=== PATIENT | male | born 1980 | race Caucasian/White ===

== ENCOUNTER → 2017-11-30 | Outpatient (CLI) | payer SELFPAY ==
[2017-11-30 09:36] LABS: EOS # 0.1 (0.04-0.40); EOS % 2.3 % (0.0-4.0); HEMATOCRIT 47.4 % (42.0-52.0); HEMOGLOBIN 15.9 g/dL (13.5-18.0); LYMPH# 2.5 (1.50-4.00); MEAN CELL VOLUME 85 fl (78-100); MEAN CORPUSCULAR HEMOGLOBIN 29 pg (27-31); MEAN CORPUSCULAR HGB CONC 34 g/dL (33-37); MEAN PLATELET VOLUME 10.1 fl (7.4-10.4); MONO # 0.6 (0.20-0.80); NEU # 2.4 (1.40-6.50); PLATELET COUNT 258 K/mm3 (130-400); RED BLOOD COUNT 5.57 M/mm3 (4.20-5.60); WHITE BLOOD COUNT 5.6 K/mm3 (4.8-10.8)
[2017-11-30 09:51] LABS: ALBUMIN 4.4 g/dL (3.5-5.0); BUN/CREATININE RATIO 23.5 (6.0-26.0); CALCIUM 9.7 mg/dL (8.4-10.2); POTASSIUM 4.2 mmol/L (3.6-5.0); TOTAL BILIRUBIN 0.6 mg/dL (0.2-1.3); TOTAL PROTEIN 8.2 g/dL (6.3-8.2)
[2017-11-30 09:56] LABS: URINE APPEARANCE CLEAR; URINE COLOR YELLOW
[2017-11-30 09:57] LABS: URINE BILIRUBIN NEGATIVE (NEGATIVE); URINE BLOOD TRACE (NEGATIVE); URINE GLUCOSE NEGATIVE (NEGATIVE); URINE KETONE NEGATIVE (NEGATIVE); URINE LEUKOCYTE ESTERASE NEGATIVE (NEGATIVE); URINE NITRATE NEGATIVE (NEGATIVE); URINE PROTEIN(semi-quant) 1+ mg/dL (NEGATIVE); URINE UROBILINOGEN NORMAL (NORMAL); URINE WBC 0-1 /hpf (0-3)
== END ==
LOC: LAB 09:18
PROVIDERS: Physician Assistant
DX: R10.13 Epigastric pain (principal); R19.5 Other fecal abnormalities

== ENCOUNTER → 2019-01-26 | Outpatient (CLI) | payer SELFPAY ==
[2019-01-26 07:28] LABS: ALBUMIN 4.3 g/dL (3.5-5.0); CALCIUM 9.8 mg/dL (8.3-10.5); POTASSIUM 4.2 mmol/L (3.5-5.1); TOTAL BILIRUBIN 0.9 mg/dL (0.2-1.2); TOTAL PROTEIN 6.9 g/dL (6.4-8.3)
== END ==
LOC: LAB 06:49
PROVIDERS: Family Medicine
DX: Z13.6 Encounter for screening for cardiovascular disorders (principal); R35.8 Other polyuria; R81 Glycosuria; Z83.3 Family history of diabetes mellitus; R20.9 Unspecified disturbances of skin sensation

== ENCOUNTER 2024-11-16 15:58 | Emergency (ER) | payer SELFPAY ==
[~2024-11-16] VITALS: Ht 175.3 cm; Wt 86.4 kg
[2024-11-16 17:15] LABS: BASO # 0.04 K/mm3 (0.02-0.10); EOS # 0.08 K/mm3 (0.04-0.40); EOS % 0.7 % (0.0-4.0); HEMOGLOBIN 14.9 g/dL (13.5-18.0); LYMPH# 2.07 K/mm3 (1.50-4.00); MEAN CELL VOLUME 85 fl (78-100); MEAN CORPUSCULAR HEMOGLOBIN 29 pg (27-31); MEAN CORPUSCULAR HGB CONC 34 g/dL (33-37); MEAN PLATELET VOLUME 10.3 fl (7.4-10.4); MONO # 0.62 K/mm3 (0.20-0.80); NEU # 8.17 K/mm3 (1.40-6.50); PLATELET COUNT 268 K/mm3 (130-400); RED BLOOD COUNT 5.19 M/mm3 (4.20-5.60)
[2024-11-16 17:22] LABS: ALBUMIN 4.1 g/dL (3.5-5.0)
[2024-11-16 17:24] LABS: CALCIUM 9.1 mg/dL (8.3-10.5)
[2024-11-16 17:27] LABS: TOTAL BILIRUBIN 0.4 mg/dL (0.2-1.2)
[2024-11-16] MEDS ORDERED: Iohexol 300 - 100 ML VIAL IV ONE (17:37)
[2024-11-16] MEDS ORDERED: NS 100 ML IV SCH (17:38)
[2024-11-16] MEDS ORDERED: Piperacillin/Tazobactam Sodium 4.5 GM in Water For Injection,Sterile 20 ML IV ONE (18:00)
[2024-11-16] MEDS ORDERED: Pantoprazole 80 MG in NS 100 ML IV ONE (18:45)
[2024-11-16] MEDS ORDERED: NS 1,000 ML IV SCH (19:15)
[2024-11-16 20:24] VITALS: BP 140/91
== END 2024-11-16 20:32 | disposition short-term general hospital (02) ==
LOC: ED 15:58
PROVIDERS: Family Medicine
DX: K92.0 Hematemesis (principal); E11.9 Type 2 diabetes mellitus without complications
CPT/HCPCS: J2470; J2543; J7030; Q9967